=== PATIENT | female | born 1940 | race Caucasian/White ===

== ENCOUNTER 2018-07-26 17:29 | Inpatient (IN) | payer OTHER ==
[~2018-07-26] VITALS: Ht 170.2 cm; Wt 82.6 kg
[2018-07-26 17:29] VITALS: BP_SYST 110
--- NOTE | 2018-07-26 17:30 | NUR ---
BROUGHT IN BY [facility], PLACED IN HALLWAY BED AND TRIAGED. REPORT GIVEN TO SAMANTHA
--- NOTE | 2018-07-26 17:40 | NUR ---
Note undone in EDM - 07/26/18 at 1741 by [email or web address] Pt AAOx4 BIB BLS c/o 05/19 pain to R upper arm s/p mechanical trip and fall. Pt fell forward on face, denies KO/N/V/blurred vision. Abrasion noted to bridge of nose. No deformites noted to R arm, but unable to lift arm above shoulder. + CMS to site. No
--- NOTE | 2018-07-26 17:40 | NUR ---
Pt AAOx4 BIB BLS c/o 05/19 pain to R upper arm s/p mechanical trip and fall. Pt fell forward on face, denies KO/N/V/blurred vision. Abrasion noted to bridge of nose. No deformites noted to R arm, but unable to lift arm above shoulder. + CMS to site. No other injuries/complaints per pt/noted. Will continue to monitor.
--- NOTE | 2018-07-26 17:40 | NUR ---
Note ирина in ED - 07/26/18 at 1740 by [email or web address] Patient to ER bed h1 for evaluation. Side rails up.
--- NOTE | 2018-07-26 18:02 | NUR ---
ER Dr. Velazquez at bedside examining patient.
--- NOTE | 2018-07-26 18:47 | NUR ---
PT taken to radiology via gurney in stable condition
--- NOTE | 2018-07-26 19:00 | NUR ---
Pt returned from radiology via [facility] in stable condition.
[2018-07-26] MEDS ORDERED: ACETAMINOPHEN 325 MG TABLET PO ONE (20:15)
[2018-07-26] MEDS ORDERED: HYDROcodone/ACETAMIN 7.5-325 MG TAB PO ONE (21:00)
[2018-07-26] MEDS ORDERED: INSULIN REGULAR, HUMAN 100 UNITS/ML, 10 ML VIAL (humuLIN R) SUBCUT PRN (22:30)
[2018-07-26] MEDS ORDERED: MORPHINE 2 MG/ML INJ. SYRINGE IVP PRN (22:30)
[2018-07-26] MEDS ORDERED: FEM2.5 PO (22:37)
[2018-07-26] MEDS ORDERED: ALPR1TAB2 PO (22:37)
[2018-07-26] MEDS ORDERED: RIVA20TA PO (22:37)
[2018-07-26] MEDS ORDERED: CHOL2000 PO (22:37)
[2018-07-26] MEDS ORDERED: DIGO125T79 PO (22:37)
[2018-07-26] MEDS ORDERED: GLIM2TAB2 PO (22:37)
[2018-07-26] MEDS ORDERED: FAMO40TA71 PO (22:37)
[2018-07-26] MEDS ORDERED: MIRA50TA PO (22:37)
--- NOTE | 2018-07-26 22:37 | NUR ---
Medication reconciliation completed with information provided by PATIENT'S LIST. Any prior medication reconciliation on file was reviewed and corrected.
--- NOTE | 2018-07-26 22:50 | NUR ---
# 24 gauge angiocath placed to R hand. Use of asceptic technique. Opsite placed over site. Blood return noted. Flushed with 10 cc of normal saline. No evidence of infiltration noted. Patient tolerated well.
--- NOTE | 2018-07-26 22:56 | NUR ---
Patient will be admitted to care of Dale . Admitted to Med surg unit. Will go to room 122A. Summary report printed. Report will be given at bedside.
--- NOTE | 2018-07-26 23:16 | NUR ---
ADMISSION NOTE Received patient from ER via gurney. Patient admitted with diagnosis of Bilateral Shoulder Fracture. Patient is awake, alert, oriented X 4. Patient oriented to hospital room, call light, toileting, pain management and safety-teach back done. Patient informed that RITA Mejia will be primary nurse and that their room number is 128A. Personal belongings checked and Belongings List documented. Call light within reach.
[2018-07-26 23:30] VITALS: BP_SYST 152
--- NOTE | 2018-07-26 23:30 | NUR ---
Initial Note Received patient awake, alert and oriented. Husand at the bedside. No SOB noted. Denies any n/v at this time. Complain of BUE pain especially when she moves her shoulders. Will medicate for pain. Saline lock flushed. Skin tear noted on left elbow, red discoloration/ecchymoses noted on the bridge of the nose and ecchymoses noted on left arm and back. No peripheral edema noted. Ambulatory with assist. Fall/safety precaution observed. Call light within reach. Bed alarm on and at lowest position at all times. Care and monitoring will be provided per protocol. Needs attended. Kept warm and comfortable. Assessment done. Oriented to room, call light and hospital policies.
[2018-07-26] MEDS: MORPHINE 2 MG/ML INJ. SYRINGE IVP PRN (23:56)
--- NOTE | 2018-07-27 | NUR ---
Pain med Medicated for BUE/shoulders pain per patient's request. Will continue to monitor. Given snacks as well.
[2018-07-27 01:43] VITALS: BP_SYST 135
--- NOTE | 2018-07-27 02:34 | NUR ---
CONSULTATION PAGED REASON FOR CONSULTATION: BILATERAL SHOULDER FRACTURE WAS CONSULT CALLED? YES PERSON WHO WAS NOTIFIED: RAPHAEL CONSULTING PHYSICIAN: DR. KELLY / DR. SOTOMAYOR MECHANICAL DOOR REPAIRER NETWORK TECHNICIAN SPECIALTY: ORTHO NETWORK TECHNICIAN PHONE NUMBER: [phone] ORDERING PHYSICIAN: DR. HYMAN
--- NOTE | 2018-07-27 03:00 | NUR ---
RN Note Assisted patient to the bathroom, weak, unsteady and feels pain on both shoulders. Assisted back to bed. at the bedside. Kept warm and comfortable.
--- NOTE | 2018-07-27 04:00 | NUR ---
Pain med Given pain medication per patient's request. Comfort measures provided. Will continue to monitor.
[2018-07-27] MEDS: MORPHINE 2 MG/ML INJ. SYRINGE IVP PRN ×4 (04:03→21:36)
--- NOTE | 2018-07-27 06:32 | NUR ---
End Note Afebrile. VS stable. at the bedside, No complain of SOB or n/v throughout the night. Medicated for bilateral shoulders pain twice since admission. Saline lock. Latest blood sugar was 151, refused insulin. Assisted to the bathroom with commode and back in bed. Dressing on left elbow CDI. Call light within reach. Bed alarm on and at lowest position at all times. Care and monitoring provided per protocol. Needs attended. Kept warm and comfortable. Fall precautions observed. Refused SCDs.
--- NOTE | 2018-07-27 06:56 | NUR ---
Nutrition Update Ben Scale 18 noted. Pt admitted for Bilateral Shoulder Fracture Diet: [facility] BMI: 28.5 kg/m2 RD to follow per nutrition care standards.
[2018-07-27 06:58] LABS: BASOPHILS % (AUTO) 0.4 % (0.0-2.0); EOSINOPHILS % (AUTO) 0.5 % (0.0-4.0); HEMATOCRIT 36.8 % (36-48); HEMOGLOBIN 12.4 g/dL (12.0-16.0); LYMPHOCYTES # (AUTO) 1.1 K/uL (1.0-5.5); LYMPHOCYTES % (AUTO) 12.6 % (20.5-51.5); MEAN CORPUSCULAR HEMOGLOBIN 34 pg (27-31); MEAN CORPUSCULAR HGB CONC 34 % (32-36); MEAN CORPUSCULAR VOLUME 102 fL (79.0-98.0); MONOCYTES # (AUTO) 0.9 K/uL (0.0-1.0); MONOCYTES % (AUTO) 10.8 % (1.7-9.3); NEUTROPHILS # (AUTO) 6.6 K/uL (1.8-7.7); NEUTROPHILS % (AUTO) 75.7 % (40.0-70.0); PLATELET COUNT (AUTO) 192 K/uL (130-430); RED BLOOD CELL COUNT(AUTO) 3.62 MIL/uL (4.2-6.2); RED CELL DISTRIBUTION WIDTH 15.2 % (9.0-15.0); WHITE BLOOD COUNT (AUTO) 8.7 K/uL (4.8-10.8)
[2018-07-27 07:16] LABS: ALANINE AMINOTRANSFERASE 21 U/L (12-78); ALBUMIN 2.7 g/dL (3.4-4.8); ANION GAP 7 (5-15); ASPARTATE AMINOTRANSFERASE 39 U/L (10-37); CALCIUM 9.4 mg/dL (8.4-11.0); CHLORIDE 101 mmol/L (98-107); CREATININE 0.66 mg/dL (0.55-1.30); GLUCOSE 157 mg/dL (70-99); POTASSIUM 4.7 mmol/L (3.5-5.1); SODIUM SERUM 136 mmol/L (136-145); TOTAL BILIRUBIN 1.3 mg/dL (0.0-1.0); UREA NITROGEN, BLOOD 14 mg/dL (8-21)
[2018-07-27 07:59] VITALS: BP_SYST 121
--- NOTE | 2018-07-27 08:00 | NUR ---
MD Rounds/orthopedic Seen and examined by DR. Jules discussed plan of care , safety, pain management , follow up with orthopedic doctor on Thursday, due pain medicatyion given , movement in left arm is more limited compare to left arm , denies any tingling sensation , no swelling in the arm , mild swelling bilasteral shoulder, will monitor.
--- NOTE | 2018-07-27 09:00 | NUR ---
Safety/education Kept with bilateral sling both arm , able to get out of bed to bath room with assist patient too scared and worried, morning care given, safety/fall precaution initiated , needs attended , at the bed side health teaching regarding safety /pain management instructed verbalized understanding.
[2018-07-27] MEDS ORDERED: ACETAMINOPHEN 325 MG TABLET PO PRN (09:15)
[2018-07-27] MEDS ORDERED: MAGNESIUM SULFATE 50 ML IV PRN (09:15)
[2018-07-27] MEDS ORDERED: LORazepam 2 MG/ML VIAL IVP PRN (09:15)
[2018-07-27] MEDS ORDERED: MORPHINE 2 MG/ML INJ. SYRINGE IVP PRN ×2 (09:15)
[2018-07-27] MEDS ORDERED: ZOLPIDEM TARTRATE 5 MG TABLET PO PRN (09:15)
[2018-07-27] MEDS ORDERED: MUPIROCIN 2% TOPICAL OINTMENT 22 GM NS PRN (09:15)
[2018-07-27] MEDS ORDERED: DOCUSATE SODIUM 100 MG CAPSULE PO PRN (09:15)
[2018-07-27] MEDS ORDERED: POTASSIUM CHLORIDE 20 MEQ TAB.PRT.SR PO PRN (09:15)
--- NOTE | 2018-07-27 11:16 | NUR ---
Blood sugar 164 mg/dl refused for insulin injection , only prefers pills , she said ill be fine.
[2018-07-27 12:50] VITALS: BP_SYST 146
[2018-07-27 16:20] VITALS: BP_SYST 135
[2018-07-27] MEDS: ONDANSETRON HCL 4 MG/2 ML VIAL IVP PRN (17:39)
[2018-07-27 20:00] VITALS: BP_SYST 132
--- NOTE | 2018-07-27 20:00 | NUR ---
ASSESSMENT Pt alert/oriented to self, time, place. Bilateral shoulders fractured. No c/o numbing or tingling of bilateral upper extremities. Pulses palpable. Pt able to wiggle fingers freely. Pt has limited range of motion of both upper arms. Saline lock present right hand 24ga. no redness or swelling noted at site. Pt gets up to bathroom with assistance.
--- NOTE | 2018-07-27 20:00 | NUR ---
ACTIVITY Pt unable to tolerate lying on right & left sides due to fractures of both shoulders. Pt does get up with assistance to ambulate to bathroom.
--- NOTE | 2018-07-27 21:45 | NUR ---
IV ACCESS Right hand 24ga leaking, catheter removed intact. IV site restarted after one attempt in right lateral side of hand with 22ga. pt tolerated procedure well.
[2018-07-28 00:49] VITALS: BP_SYST 156
[2018-07-28] MEDS: ONDANSETRON HCL 4 MG/2 ML VIAL IVP PRN (05:00)
[2018-07-28] MEDS: MORPHINE 2 MG/ML INJ. SYRINGE IVP PRN ×5 (05:01→21:33)
[2018-07-28 06:27] LABS: BASOPHILS # (AUTO) 0.1 K/uL (0.0-0.2); BASOPHILS % (AUTO) 0.6 % (0.0-2.0); EOSINOPHILS # (AUTO) 0.2 K/uL (0.0-0.4); EOSINOPHILS % (AUTO) 2.6 % (0.0-4.0); HEMATOCRIT 33.6 % (36-48); HEMOGLOBIN 11.5 g/dL (12.0-16.0); LYMPHOCYTES # (AUTO) 1.7 K/uL (1.0-5.5); LYMPHOCYTES % (AUTO) 18.9 % (20.5-51.5); MEAN CORPUSCULAR HEMOGLOBIN 35 pg (27-31); MEAN CORPUSCULAR HGB CONC 34 % (32-36); MEAN CORPUSCULAR VOLUME 102 fL (79.0-98.0); MONOCYTES # (AUTO) 1.1 K/uL (0.0-1.0); NEUTROPHILS # (AUTO) 5.9 K/uL (1.8-7.7); NEUTROPHILS % (AUTO) 65.9 % (40.0-70.0); PLATELET COUNT (AUTO) 193 K/uL (130-430); RED BLOOD CELL COUNT(AUTO) 3.29 MIL/uL (4.2-6.2); RED CELL DISTRIBUTION WIDTH 15.3 % (9.0-15.0); WHITE BLOOD COUNT (AUTO) 8.9 K/uL (4.8-10.8)
[2018-07-28 06:54] LABS: ANION GAP 6 (5-15); CALCIUM 9.4 mg/dL (8.4-11.0); CHLORIDE 99 mmol/L (98-107); CREATININE 0.69 mg/dL (0.55-1.30); GLUCOSE 148 mg/dL (70-99); POTASSIUM 3.9 mmol/L (3.5-5.1); SODIUM SERUM 133 mmol/L (136-145); UREA NITROGEN, BLOOD 19 mg/dL (8-21)
[2018-07-28 08:00] VITALS: BP_SYST 116
--- NOTE | 2018-07-28 08:00 | NUR ---
Patient wake/alert worried regarding her medication, refused to use the sling to both arm , she said felt more comfortable hand supported by pillow, swelling in the shoulder +2 able to move arm but limited due to pain , discussed plan of care /possible discharge to SNF for rehab ,fall safety precaution initiated.
[2018-07-28] MEDS: RIVAROXABAN 10 MG TABLET PO SCH (09:00)
[2018-07-28] MEDS ORDERED: NON-FORMULARY MEDICATION (Mirabegron (Myrbetriq) 50 MG) PO SCH (09:00)
[2018-07-28] MEDS: FAMOTIDINE 20 MG TABLET PO SCH (09:00)
--- NOTE | 2018-07-28 09:25 | NUR ---
Patient more anxious and forgetful saying that nobody see her since she came to hospital , reminded her Dr. Jules and DR. Dale both seen and examined the patient yesterday.
[2018-07-28] MEDS: DIGOXIN 0.125 MG TABLET PO SCH (09:28)
[2018-07-28] MEDS: LETROZOLE 2.5 MG TABLET (FEMARA) PO SCH (09:35)
--- NOTE | 2018-07-28 11:10 | NUR ---
Machine Repairman: LANCE CREWMEMBER met with Pt. bedside. Pt. stated she did not ask to see LANCE CREWMEMBER/Machine Repairman. Pt. stated she was worried about her because he had been at the hospital worried and caring for her. Pt. stated her had such a lack of sleep, but reports that he is better. Any concerns she had have passes and feel they worries were due to his lack of sleep. She reports he is better and there is no need for any type of intervention. LANCE CREWMEMBER stated she is located at the hospital and is available to pt. if she feels she has any concerns. Addendum: 07/28/18 at 1231 by Radha PAUL Machine Repairman: LANCE CREWMEMBER met with pt. bedside, this time her , Petr was present. This gave LANCE CREWMEMBER an opportunity to do an assessment on him. Pt. stated she was doing ok. Mr. Emerson stated he was doing well. He said he was hard of hearing and does not have any hearing aids as they would cost $5000. He stated he only pays attention to what he has to. He was pleasant, alert and friendly. Pt. stated when she fell 3 young boys came to assist her. When asked about family support, pt. said she has a daughter whom she raised by herself and a granddaughter. Both have not been helpful and pt. stated they have abandoned her. She has been without their support since she wad Dx. with Cancer and was getting Treatment at [facility]. Pt. grew teary eyed as she stated her called to tell her daughter of her most recent fall. Pt. daughter replied, "I'm not at home" and has not reached out. Pt. stated her , Petr's son, who is well of told his dad don't call me, I will call you. Pt. stated she is going to a nursing facility to get stronger. Pt. stated they have good neighbors who will check in with Petr while she is in a temporary nursing facility. Petr said she has a 24 hour a week job at [employer], so he will keep busy when he is not visiting his . Both Pt. and stated they don't have any needs at this time. They thanked LANCE CREWMEMBER. LANCE CREWMEMBER will remain available as needed. Addendum: 07/28/18 at 1336 by Radha PAUL Machine Repairman: LANCE CREWMEMBER spoke with pts' Petr more thoroughly. Petr and pt. stated he is safe to be at home. He has not been hospitalized. He knows how to cook and goes grocery shopping, drives himself. Pt. stated her skilled facility is close to their home and he will be alble to go to have meals there with her. Both Pt. and felt he was going to be well as [facility]. When asked. Pt. stated Petr has been assessed by their primary care phys. Dr. Cruz. LANCE CREWMEMBER thanked the couple for answering all of her question. LANCE CREWMEMBER will remain available as needed.
--- NOTE | 2018-07-28 11:14 | NUR ---
Blood sugar 156 mg/dl refused for insulin, seen and examined by Dr. Dale discussed plan of care possible discharge to rehab tomorrow.
[2018-07-28] MEDS: GLIMEPIRIDE 2 MG TABLET PO SCH (12:13)
--- NOTE | 2018-07-28 13:50 | NUR ---
Mobility Out of bed to bathroom using gait belt , refused to use sling bilateral arm , with assist no dizziness tolerates well, fall /safety precaution initiated.
[2018-07-28 14:46] VITALS: BP_SYST 129
--- NOTE | 2018-07-28 15:14 | NUR ---
P.T. NOTES AFTER MULTIPLE ATTEMPTS PATIENT REFUSED TO BE SEEN BY P.T., STATES NOT FEELING WELL AND IN PAIN.
--- NOTE | 2018-07-28 15:18 | NUR ---
Discharge Planning: DCP faxed pt referral to [facility] ([phone] p [phone]) DCP to follow up.
--- NOTE | 2018-07-28 15:45 | NUR ---
ACCOMPANIED PATIENT TO THE BATHROOM ACCOMPANIED PATIENT TO THE BATHROOM, WAITED OUTSIDE THE BATHROOM TILL PATIENT WENT BACK TO BED. PLACED PATIENT ON COMFORTABLE POSITION, INSIDE THE ROOM, HELPING PATIENT TO GO BACK IN BED. LEFT THE ROOM AND AFTER FEW MINUTES, COMPLAINED TO MEDICAL TECHNOLOGIST THAT NO ONE CAME TO HELP PATIENT TO THE BATHROOM, PT WAS CRYING WHILE IN BED. NURSE LINDA WENT BACK AND CHECKED PATIENT LIKE NOT HAPPEN TO PATIENT.
--- NOTE | 2018-07-28 17:07 | NUR ---
Data Integration Developer: After consulting with Zahida Baker, TRANSPLANT COORDINATOR shared with her that she did an assessment with pts' Petr Emerson. TRANSPLANT COORDINATOR will be filing a APS report based on Rn's concerns. TRANSPLANT COORDINATOR filed an APS report via internet ID [id number].
[2018-07-28 17:26] VITALS: BP_SYST 151
--- NOTE | 2018-07-28 18:00 | NUR ---
Out of bed to bathroom using gait belt refused for sling , tolerates well , fall safety precaution initiated.
--- NOTE | 2018-07-28 19:10 | NUR ---
OPENING NOTES RECEIVED PATIENT IN BED. AT BEDSIDE. BREATHING UNLABORED ON ROOM AIR. PLAN OF CARE REVIEWED WITH PATIENT. BED IN LOWEST LOCKED POSITION WITH BED ALARM ON.
[2018-07-28 20:47] VITALS: BP_SYST 143
--- NOTE | 2018-07-28 21:33 | NUR ---
PAIN MGT PATIENT MEDICATED WITH MORPHINE ORDERED FOR C/O RT ARM AND RT SHOULDER PAIN 10/. VITAL SIGNS STABLE.
--- NOTE | 2018-07-28 22:10 | NUR ---
OOB PATIENT ASSISTED OUT OF BED TO REST ROOM AND BACK TO BED WITH GAIT BELT IN USED. BED ALARM ON. BED LOCKED IN LOWEST POSITION.
--- NOTE | 2018-07-28 23:45 | NUR ---
OOB PATIENT ASSISTED OUT OF BED TO RESTROOM AND BACK TO BED WITH GAIT BELT UTILIZED. BED ALARM ON.
[2018-07-29] VITALS: BP_SYST 118; BP_SYST 164
--- NOTE | 2018-07-29 00:25 | NUR ---
TRANSFER PATIENT MOVED TO ROOM 120-A FOR SAFETY/FALL PRECAUTION. ROOM CLOSER TO NURSES STATION. AT BEDSIDE. BED ALARM ON. CALL LIGHT WITH IN REACH. BED IN LOWEST LOCKED POSITION.
--- NOTE | 2018-07-29 03:00 | NUR ---
OOB PATIENT ASSISTED OUT OF BED TO BEDSIDE COMMODE AND BACK TO BED. BED ALARM ON. PATIENT STILL REFUSING TO USE ARM SLING.
[2018-07-29 05:27] LABS: BASOPHILS # (AUTO) 0.1 K/uL (0.0-0.2); BASOPHILS % (AUTO) 0.6 % (0.0-2.0); EOSINOPHILS % (AUTO) 0.3 % (0.0-4.0); HEMATOCRIT 33.9 % (36-48); HEMOGLOBIN 11.1 g/dL (12.0-16.0); LYMPHOCYTES # (AUTO) 1.1 K/uL (1.0-5.5); LYMPHOCYTES % (AUTO) 10.1 % (20.5-51.5); MEAN CORPUSCULAR HEMOGLOBIN 34 pg (27-31); MEAN CORPUSCULAR HGB CONC 33 % (32-36); MEAN CORPUSCULAR VOLUME 102 fL (79.0-98.0); MONOCYTES # (AUTO) 1.6 K/uL (0.0-1.0); MONOCYTES % (AUTO) 14.4 % (1.7-9.3); NEUTROPHILS # (AUTO) 8.4 K/uL (1.8-7.7); NEUTROPHILS % (AUTO) 74.6 % (40.0-70.0); PLATELET COUNT (AUTO) 151 K/uL (130-430); RED BLOOD CELL COUNT(AUTO) 3.32 MIL/uL (4.2-6.2); RED CELL DISTRIBUTION WIDTH 15.3 % (9.0-15.0); WHITE BLOOD COUNT (AUTO) 11.2 K/uL (4.8-10.8)
[2018-07-29 05:37] LABS: ANION GAP 8 (5-15); CALCIUM 8.9 mg/dL (8.4-11.0); CHLORIDE 99 mmol/L (98-107); CREATININE 0.83 mg/dL (0.55-1.30); GLUCOSE 150 mg/dL (70-99); POTASSIUM 3.8 mmol/L (3.5-5.1); SODIUM SERUM 138 mmol/L (136-145); UREA NITROGEN, BLOOD 20 mg/dL (8-21)
--- NOTE | 2018-07-29 06:29 | NUR ---
CLOSING NOTES PATIENT RESTING IN BED. BREATHING UNLABORED ON ROOM AIR. IV LINE INTACT. PATIENT NEEDS ATTENDED. BED IN LOWEST LOCKED POSITION WITH ALARM ON. PATIENT STILL REFUSING TO WEAR ARM SLING. CALL LIGHT WITH IN REACH.
--- NOTE | 2018-07-29 07:50 | NUR ---
opening note patient is resting in bed, at the bedside, educated automation machine operator light system and plan of care, patient verbalized understanding, patient is able to state name and , IV site clean and dressing intact, no other needs at this time, fall/safety precautions in place.
[2018-07-29 08:00] VITALS: BP_SYST 147
[2018-07-29] MEDS: FAMOTIDINE 20 MG TABLET PO SCH (08:21)
[2018-07-29] MEDS: DIGOXIN 0.125 MG TABLET PO SCH (08:22)
[2018-07-29] MEDS: RIVAROXABAN 10 MG TABLET PO SCH (08:23)
[2018-07-29] MEDS: LETROZOLE 2.5 MG TABLET (FEMARA) PO SCH (08:56)
[2018-07-29] MEDS: MORPHINE 2 MG/ML INJ. SYRINGE IVP PRN (09:31)
--- NOTE | 2018-07-29 09:31 | NUR ---
pain medication patient complaining of bilateral shoulder pain, educated on medication use and side effects, patient verbalized understanding, no other needs at this time, fall/safety precautions in place.
[2018-07-29 09:38] VITALS: BP_SYST 139
[2018-07-29 09:52] VITALS: BP_SYST 173
--- NOTE | 2018-07-29 11:53 | NUR ---
Discharge Planning: [facility] ([phone] p [phone]) Rm 3A, [facility] ([phone]) 3:00pm P/U. Nurse made aware and pt packet taken to nurse station.
[2018-07-29] MEDS: GLIMEPIRIDE 2 MG TABLET PO SCH (11:54)
--- NOTE | 2018-07-29 12:00 | NUR ---
accuchek and scheduled medications patient is resting in bed, accuchek done and no sliding scale needed at this time, educated on medication use and side effects, patient verbalized understanding, informed patient that she will be going to [place] this afternoon, patient verbalized understanding, no other needs at this time, fall/safety precautions in place.
[2018-07-29 12:42] VITALS: BP_SYST 139
--- NOTE | 2018-07-29 14:01 | NUR ---
pain medication patient complaining of bilateral shoulder pain, educated on medication use and side effects, patient verbalized understanding, no other needs at this time, fall/safety precautions in place. Addendum: 07/29/18 at 1610 by Zena Jain RN 1960 entry
== END 2018-07-29 15:47 | DRG 563 ==
LOC: SED 17:29 → SMU 22:17
PROVIDERS: ADMIT General Practice; ATTEND General Practice
DX: S42.201A Unspecified fracture of upper end of right humerus, initial encounter for closed fracture (principal); S42.252A Displaced fracture of greater tuberosity of left humerus, initial encounter for closed fracture; E44.0 Moderate protein-calorie malnutrition; C85.90 Non-Hodgkin lymphoma, unspecified, unspecified site; I48.91 Unspecified atrial fibrillation; S00.81XA Abrasion of other part of head, initial encounter; K21.9 Gastro-esophageal reflux disease without esophagitis; W01.0XXA Fall on same level from slipping, tripping and stumbling without subsequent striking against object, initial encounter; S09.90XA Unspecified injury of head, initial encounter; R26.9 Unspecified abnormalities of gait and mobility; E11.9 Type 2 diabetes mellitus without complications; Z85.3 Personal history of malignant neoplasm of breast; Y93.89 Activity, other specified; Y92.89 Other specified places as the place of occurrence of the external cause; Y99.8 Other external cause status; Z91.041 Radiographic dye allergy status; Z79.01 Long term (current) use of anticoagulants; Z79.899 Other long term (current) drug therapy; Z90.49 Acquired absence of other specified parts of digestive tract; Z68.28 Body mass index [BMI] 28.0-28.9, adult
CPT/HCPCS: 36415; 70450-TC; 73030; 80048; 80053; 82962; 83036; 83735-TC; 85025; 97116-GP; 97530-GP; 99284; J1815; J2270; J2405; J3475; J7050